=== PATIENT | male | born 1960 | race African-American/Black ===

== ENCOUNTER 2017-04-11 07:42 | Inpatient (IN) ==
[2017-04-11 08:51] LABS: Barbiturates Screen,Urine Negative (Negative); Benzodiazepines Screen,Urine Negative (Negative); Calcium 8.8 MG/DL (8.5-10.1); Cannabinoid Screen,Urine Negative (Negative); Magnesium 1.9 MG/DL (1.8-2.4); Opiate Screen,Urine Negative (Negative); Osmolality,Calculated 276.2 MOS/KG (273-304); Phencyclidine Screen,Urine Negative (Negative); Potassium 4.3 MMOL/L (3.5-5.1)
[2017-04-11 12:40] LABS: Basophils % 0.5 % (0.0-0.8); Eosinophils # 0.5 10*3/uL (0.0-0.87); Eosinophils % 6.5 % (0.00-10.9); Hematocrit 40.8 VOL% (42.0-52.0); Immature Granulocytes % 0.1 %; Immature Granulocytes Absolute 0.01 #; Lymphocytes # 2.8 10*3/uL (1.4-4.0); Mean Corpuscular HGB Conc 34.3 GM/DL (32-36); Mean Corpuscular Hemoglobin 31 PG (27-34); Mean Corpuscular Volume 88.9 FL (87-102); Mean Platelet Volume 11.8 FL (9.6-12.0); Monocytes # 0.7 10*3/uL (0.11-0.8); Monocytes % 9.4 % (1.7-12.7); Neutrophils # 3.7 10*3/uL (1.4-7.4); Neutrophils % 47.5 % (38.7-73.9); Platelet Count 279 T/CUMM (130-400); Red Blood Count 4.59 MC/CUMM (3.8-5.5); Red Cell Distribution Width 13.7 % (9.3-17.3); White Blood Count 7.7 T/CUMM (4-12)
[2017-04-11] MEDS ORDERED: GLUCAGON 1 MG VIAL IM PRN (13:19)
[2017-04-11] MEDS ORDERED: DEXTROSE 50% 25 GM/50 ML VIAL IV PRN (13:19)
[2017-04-11] MEDS ORDERED: ACETAMINOPHEN 325 MG TABLET PO PRN (13:19)
[2017-04-11] MEDS ORDERED: LORazepam 2 MG/1 ML VIAL IV PRN (13:19)
[2017-04-11 13:35] LABS: Apearance,Urine CLEAR (Clear); Bilirubin,Urine Negative (Negative); Blood, Urine Negative (Negative); Glucose,Urine (UA) >=500 mg/dL (Negative); Ketones,Urine Negative (Negative); Nitrite,Urine Negative (Negative); Protein,Urine Negative; RBC,Urine 1 /HPF (0-4); Urine Color Yellow (Yellow); Urine Specific Gravity 1.023 (1.001-1.035); Urine Urobilinogen < 2.0 EU/DL (0.2-1.0); WBC,Urine <1 /HPF (0-6)
[2017-04-11] MEDS: INSULIN LISPRO 100 UNIT/ML SUBCUT SCH ×2 (17:46→21:08)
[2017-04-11] MEDS ORDERED: PHENOL 1.4% THROAT SPRAY 177 ML BOTTLE PO PRN (20:21)
[2017-04-11] MEDS: GLIMEPIRIDE 4 MG TABLET PO SCH (21:08)
[2017-04-11] MEDS: CARVEDILOL 6.25 MG TABLET PO SCH (21:08)
[2017-04-11] MEDS: CETIRIZINE 10 MG TABLET PO SCH (21:08)
[2017-04-11] MEDS: ATORVASTATIN 20 MG TABLET PO SCH (21:08)
[2017-04-11] MEDS: levETIRAcetam 500 MG TABLET PO SCH (21:08)
[2017-04-11] MEDS: DULoxetine 30 MG CAPSULE PO SCH (21:47)
[2017-04-11] MEDS: NAPROXEN 500 MG TABLET PO PRN (21:47)
[2017-04-12] MEDS: SODIUM CHLORIDE 0.9% 1,000 ML IV SCH ×3 (02:52→15:22)
[2017-04-12 06:53] LABS: Basophils # 0.1 10*3/uL (0.0-0.2); Basophils % 0.5 % (0.0-0.8); Eosinophils # 0.4 10*3/uL (0.0-0.87); Eosinophils % 4.4 % (0.00-10.9); Hematocrit 38.9 VOL% (42.0-52.0); Hemoglobin 13.4 GM/DL (14.0-18.0); Immature Granulocytes % 0.2 %; Immature Granulocytes Absolute 0.02 #; Lymphocytes # 2.8 10*3/uL (1.4-4.0); Lymphocytes % 29.2 % (21.2-54.2); Mean Corpuscular HGB Conc 34.4 GM/DL (32-36); Mean Corpuscular Hemoglobin 30 PG (27-34); Mean Corpuscular Volume 86.8 FL (87-102); Mean Platelet Volume 11.3 FL (9.6-12.0); Monocytes % 10.1 % (1.7-12.7); Neutrophils # 5.3 10*3/uL (1.4-7.4); Neutrophils % 55.6 % (38.7-73.9); Platelet Count 279 T/CUMM (130-400); Red Blood Count 4.48 MC/CUMM (3.8-5.5); Red Cell Distribution Width 13.4 % (9.3-17.3); White Blood Count 9.6 T/CUMM (4-12)
[2017-04-12 07:37] LABS: Calcium 8.8 MG/DL (8.5-10.1); Osmolality,Calculated 279.8 MOS/KG (273-304); Potassium 4.4 MMOL/L (3.5-5.1); Thyroid Stimulating Hormone 0.48 uIU/ml (0.358-3.74)
[2017-04-12] MEDS: INSULIN LISPRO 100 UNIT/ML SUBCUT SCH ×4 (09:43→22:25)
[2017-04-12] MEDS: levETIRAcetam 500 MG TABLET PO SCH ×2 (09:44→22:26)
[2017-04-12] MEDS: LISINOPRIL 20 MG TABLET PO SCH (09:44)
[2017-04-12] MEDS: NAPROXEN 500 MG TABLET PO PRN ×2 (09:44→22:26)
[2017-04-12] MEDS: CETIRIZINE 10 MG TABLET PO SCH (09:44)
[2017-04-12] MEDS: GLIMEPIRIDE 4 MG TABLET PO SCH ×2 (09:45→22:27)
[2017-04-12] MEDS: CARVEDILOL 6.25 MG TABLET PO SCH ×2 (09:45→22:27)
[2017-04-12 13:39] LABS: Risk Ratio 2.69; VLDL CHOLESTEROL 15.4 MG/DL
[2017-04-12] MEDS: ATORVASTATIN 20 MG TABLET PO SCH (22:26)
[2017-04-12] MEDS: DULoxetine 30 MG CAPSULE PO SCH (22:27)
[2017-04-12] MEDS ORDERED: MAGNESIUM HYDROXIDE SUSP 30 ML UDCUP PO PRN (23:18)
[2017-04-13] MEDS: SODIUM CHLORIDE 0.9% 1,000 ML IV SCH ×2 (02:57→09:15)
[2017-04-13] MEDS ORDERED: levETIRAcetam 500 MG TABLET PO SCH (08:30)
[2017-04-13] MEDS: LISINOPRIL 20 MG TABLET PO SCH (09:13)
[2017-04-13] MEDS: CARVEDILOL 6.25 MG TABLET PO SCH (09:13)
[2017-04-13] MEDS: GLIMEPIRIDE 4 MG TABLET PO SCH (09:13)
[2017-04-13] MEDS: INSULIN LISPRO 100 UNIT/ML SUBCUT SCH ×2 (09:14→11:23)
[2017-04-13] MEDS: CETIRIZINE 10 MG TABLET PO SCH (09:14)
[2017-04-13 11:20] VITALS: BP 144/88
== END 2017-04-13 11:26 | DRG 101 ==
LOC: EDBD → EDUNIT# → N.ED 07:42 → N.EDINP 10:40 → N.5E 15:52
PROVIDERS: ADMIT Internal Medicine; ATTEND Internal Medicine